=== PATIENT | male | born 1955 | race Caucasian/White ===

== ENCOUNTER 2018-10-27 12:28 | Outpatient (RCR) | payer BC, OTHER | END 2019-01-25 | disposition home or self-care (01) | LOC: ONC 12:28 | PROVIDERS: ATTEND Radiology Radiation Oncology | DX: C61 Malignant neoplasm of prostate (principal) | CPT/HCPCS: 99204 ==

== ENCOUNTER 2019-03-01 14:43 | Outpatient (RCR) | payer BC ==
[2019-04-28] MEDS ORDERED: BICA50TA5 PO (09:53)
[2019-04-28] MEDS ORDERED: ATOR10TA66 PO (09:53)
[2019-05-04] MEDS ORDERED: CIPR-226 PO (11:46)
[2019-05-04] MEDS ORDERED: ACET1TAB43 PO (11:48)
== END 2019-05-30 | disposition home or self-care (01) ==
LOC: ONC 14:43
PROVIDERS: ATTEND Radiology Radiation Oncology
DX: C61 Malignant neoplasm of prostate (principal)
CPT/HCPCS: 76873; 77331

== ENCOUNTER 2019-04-28 05:30 | Outpatient (CLI) | payer BC ==
[~2019-04-28] VITALS: Ht 185.4 cm; Wt 96.6 kg
[2019-04-28] MEDS ORDERED: ATOR10TA66 PO (09:53)
[2019-04-28] MEDS ORDERED: BICA50TA5 PO (09:53)
== END 2019-04-28 10:27 | disposition home or self-care (01) ==
LOC: PREOP 05:30
PROVIDERS: ATTEND Radiology Radiation Oncology
DX: Z01.818 Encounter for other preprocedural examination (principal)

== ENCOUNTER 2019-05-04 10:46 | Day surgery (SDC) | payer BC ==
[~2019-05-04] VITALS: Ht 185.4 cm; Wt 96.6 kg
[2019-05-04] VITALS (11 sets, daily range): BP systolic 129–153; BP diastolic 75–91
[~2019-05-04 10:46] MED LIST: ATOR10TA66 PO; BICA50TA5 PO
[2019-05-04] MEDS ORDERED: LEVOFLOXACIN 500 MG/100 ML IV 100 ML IV ONE (11:00)
--- NOTE | 2019-05-04 11:37 | Progress Note-Pre Operative ---
Pre-Operative Progress Note H&P Reviewed The H&P was reviewed, patient examined and no changes noted. Date Seen by Provider: May 04, 2019 Time Seen by Provider: 11:37 Date H&P Reviewed: May 04, 2019 Time H&P Reviewed: 11:37 Pre-Operative Diagnosis: Prostate cancer cT1c, PSA 16.3, [place] 8 (4+4) JAZMYNE GAFFNEY MD May 04, 2019 11:37
--- NOTE | 2019-05-04 11:45 | Discharge Inst-Simple/Standard ---
Discharge Inst-Standard Discharge Medications New, Converted or Re-Newed RX: RX Given to Pt/Family Patient Instructions/Follow Up Plan of Care/Instructions/FU: 1)Post implant scan at [facility] 06/01/19 at 10:00 a.m. 2) Follow up with Dr. Cortez 06/10/19 at 8:15 a.m. Activity as Tolerated: Yes Discharge Diet: No Restrictions Other Inst to Patient Please instruct patient how to remove landers catheter - Wednesday 05/09 morning. If patient does not want to remove at home, please make appointment with Dr. Cortez's office Thursday a.m. JAZMYNE GAFFNEY MD May 04, 2019 11:45
[2019-05-04] MEDS ORDERED: CIPR-226 PO (11:46)
[2019-05-04] MEDS ORDERED: ACET1TAB43 PO (11:48)
[2019-05-04] MEDS ORDERED: BACITRACIN OINTMENT 28 GM TUBE ONE (12:44)
[2019-05-04] MEDS ORDERED: proPOfol 200 MG/20 ML (DIPRIVAN) VIAL IV ONE (12:49)
[2019-05-04] MEDS ORDERED: DEXAMETHASONE 10 MG/ML (DECADRON) 1 ML VIAL ONE (12:49)
[2019-05-04] MEDS ORDERED: SEVOFLURANE (ULTANE) 15 ML INHAL SOLN ONE (12:49)
[2019-05-04] MEDS ORDERED: ONDANSETRON 4 MG/2 ML (SDV) Z0FRAN ONE (12:49)
[2019-05-04] MEDS ORDERED: fentaNYL INJECTION 100 MCG/2 ML AMP ONE (12:49)
[2019-05-04] MEDS ORDERED: LIDOCAINE PF 2% 5 ML (XYLOCAINE) VIAL ONE (12:49)
[2019-05-04] MEDS ORDERED: MIDAZOLAM 2 MG/2 ML (VERSED) VIAL ONE (12:50)
[2019-05-04] MEDS: LACTATED RINGERS 1,000 ML IV PRN ×2 (13:00→14:12)
[2019-05-04] MEDS ORDERED: GLYCOPYRROLATE 0.2 MG/ML (ROBINUL) 2 ML VIAL ONE (13:35)
[2019-05-04] MEDS ORDERED: PHENYLEPHRINE 100 MCG/ML 10 ML (ANESTHESIA) SYR ONE (13:35)
[2019-05-04] MEDS ORDERED: HYDROmorphone 2 MG/ML VIAL (DILAUDID) IV ONE (14:30)
[2019-05-04] MEDS ORDERED: MEPERIDINE (DEMEROL) INJ 50 MG/ML IVP ONE (14:30)
--- NOTE | 2019-05-04 14:52 | Progress Note-Post Operative ---
Post-Operative Progess Note Surgeon (s)/Maintenance Groundskeeper (s) Surgeon JAZMYNE GAFFNEY MD Maintenance Groundskeeper: Cedrick DOW MD Pre-Operative Diagnosis Prostate cancer cT1c, PSA 16.3, [place] 8 (4+4) Post-Operative Diagnosis Same as pre op Procedure & Operative Findings Date of Procedure 05/04/19 Procedure Performed/Findings 1) 67% Cesium 131 permanent prostate seed implant with cystogram 2) Injection of biodegradable hydrogel prostate-rectal spacer utilizing the SpaceOAR system Prostate volume 26.5 cc Anesthesia Type General Estimated Blood Loss Estimated blood loss (mL): Minimal Specimens/Packing Specimens Removed None Packing: N/A JAZMYNE GAFFNEY MD May 04, 2019 14:52
--- NOTE | 2019-05-04 15:14 | Diagnostic Imaging Report ---
Fluoroscopy. Indication: Brachytherapy. 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 12 seconds of fluoroscopy time was utilized. Two spot films of the pelvis were obtained. The bladder has been opacified by contrast. There are numerous radiopaque metallic seed implants within the prostate gland. Impression: Fluoroscopic assistance was provided for Dr. Villanueva. Dictated by: Dictated on workstation # [id number]
[2019-05-04] MEDS ORDERED: APAP 300 MG/CODEINE 30 MG (TYLENOL #3) TAB PO ONE (15:21)
--- NOTE | 2019-05-04 15:25 | NUR ---
TYLENOL #3, ONE TAB, GIVEN PO FOR C/O GENITAL "PRESSURE" RATED 6. URINE CLEAR, YELLOW, TO DD RAVI BAG ON LOWER BED RAIL. CATHETER SECURED TO LEFT LEG WITH STATLOCK DEVICE. TAPED AND ROLLED ABD INTACT TO PERINEAL AREA, NO BLEEDING NOTED AT SITE. TAKING PO FLUIDS AND CRACKERS WITHOUT PROBLEM.
[2019-05-04] MEDS ORDERED: APAP 300 MG/CODEINE 30 MG (TYLENOL #3) TAB PO PRN (15:30)
--- NOTE | 2019-05-04 17:05 | NUR ---
GENITAL PRESSURE/PAIN RATED 3. ALERT, NO CHANGE IN SITE/URINE ASSESSMENTS. DISCHARGE INSTRUCTIONS DISCUSSED AND DEMONSTRATED TO PT AND . RAVI PUT TO LEG BAG FOR DISMISSAL AND CATHETER CARE SUPPLIES PROVIDED. REQUESTING DISMISSAL.
== END 2019-05-04 17:05 | disposition home or self-care (01) ==
LOC: SDC 10:46
PROVIDERS: ATTEND Radiology Radiation Oncology
DX: C61 Malignant neoplasm of prostate (principal); E11.9 Type 2 diabetes mellitus without complications; E78.00 Pure hypercholesterolemia, unspecified; F17.210 Nicotine dependence, cigarettes, uncomplicated; E78.5 Hyperlipidemia, unspecified; Z80.0 Family history of malignant neoplasm of digestive organs; K21.9 Gastro-esophageal reflux disease without esophagitis; Z79.899 Other long term (current) drug therapy; Z11.2 Encounter for screening for other bacterial diseases
CPT/HCPCS: 76965; 77290; 77318; 77332; 77370; 77470; 77778; 82962; 87081

== ENCOUNTER 2019-06-02 09:24 | Outpatient (RCR) | payer BC ==
[~2019-06-02 09:24] MED LIST changes: +ACET1TAB43 PO; +CIPR-226 PO
[2019-06-02 10:08] LABS: CREATININE SERUM 0.96 MG/DL (0.60-1.30)
== END 2019-08-31 | disposition home or self-care (01) ==
LOC: ONC 09:24
PROVIDERS: ATTEND Radiology Radiation Oncology
DX: Z51.0 Encounter for antineoplastic radiation therapy (principal); C61 Malignant neoplasm of prostate
CPT/HCPCS: 77290; 82565; 84520